=== PATIENT | female | born 1960 | race African-American/Black ===

== ENCOUNTER 2022-04-26 15:17 | Outpatient (CLI) | payer OTHER | END 2022-04-26 15:18 | disposition home or self-care (01) | LOC: CSHRAD 15:17 | PROVIDERS: ATTEND Orthopaedic Surgery | DX: M54.2 Cervicalgia (principal); M54.6 Pain in thoracic spine; M54.50 Low back pain, unspecified; M47.812 Spondylosis without myelopathy or radiculopathy, cervical region; M41.9 Scoliosis, unspecified; M47.814 Spondylosis without myelopathy or radiculopathy, thoracic region; M47.816 Spondylosis without myelopathy or radiculopathy, lumbar region | CPT/HCPCS: 72050; 72072; 72100 ==